=== PATIENT | female | born 2005 | race Two or more races ===

== ENCOUNTER 2025-01-09 14:28 | Emergency (ER) | payer SELFPAY ==
[~2025-01-09] VITALS: Ht 160 cm; Wt 71.3 kg
[2025-01-09 14:57] VITALS: TEMP 98.4
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
--- NOTE | 2025-01-09 16:00 | DVH ---
EXAM: XR Right Wrist Complete, 3 or More Views CLINICAL INDICATION: r/o fx TECHNIQUE: Frontal, lateral and oblique views of the right wrist. COMPARISON: None FINDINGS: BONES/JOINTS: See below. SOFT TISSUES: Soft tissue swelling without acute fracture. No radiopaque foreign body. OTHER FINDINGS: . IMPRESSION: 1. Soft tissue swelling without acute fracture. 2. If symptoms persist, further evaluation with CT is recommended.
[2025-01-09 17:20] VITALS: BP 121/73; PULSE 73; RESP 16; O2SAT 99
== END 2025-01-09 17:39 | disposition home or self-care (01) ==
LOC: ER 14:28 → EDBD 14:28 → ER 17:39
DX: S63.501A Unspecified sprain of right wrist, initial encounter (principal); V89.2XXA Person injured in unspecified motor-vehicle accident, traffic, initial encounter; Y93.89 Activity, other specified; Y92.89 Other specified places as the place of occurrence of the external cause; Y99.8 Other external cause status
CPT/HCPCS: 73110